=== PATIENT | male | born 1975 | race Caucasian/White ===

== ENCOUNTER 2021-06-05 23:00 | Emergency (ER) | payer BC, OTHER ==
[2021-06-05 23:11] VITALS: TEMP 97.9; BMI 25.8
[2021-06-06 01:00] LABS: CHLORIDE 105 mmol/L (98-107); SODIUM 139 mmol/L (136-145)
[2021-06-06 01:02] LABS: ALBUMIN 4.1 g/dl (3.4-5.0); ANION GAP 4 MMOL/L (8-16); BLOOD UREA NITROGEN 16.9 mg/dL (7-18); CALCIUM 9.1 mg/dL (8.5-10.1); CO2 30 mmol/L (21-32)
[2021-06-06 01:03] LABS: GLUCOSE,RANDOM 83 mg/dL (74-106)
[2021-06-06 01:38] VITALS: BP 125/83; PULSE 69
[2021-06-06] MEDS ORDERED: clonazePAM 2 MG TABLET PO ONE (01:38)
[2021-06-06] MEDS ORDERED: clonazePAM 0.5 MG TABLET PO ONE (01:38)
[2021-06-06 01:40] LABS: BASO % 1.1 % (0-2.0); EOS % 3.4 % (0-4.5); HEMOGLOBIN 12.7 GM/dL (11.7-16.9); LYMPH % 32.8 % (8-40); MCH 27.8 pg (25.7-33.7); MCHC 34.2 g/dl (32.0-35.9); MEAN CELL VOLUME 81.4 fl (80-96); MEAN PLT VOLUME 7.1 fl (7.5-11.1); MONO % 9.9 % (3.8-10.2); NEUT % 52.8 % (42.8-82.8); PLATELET COUNT 417 10^3/uL (134-434); RBC 4.54 M/mm3 (4.00-5.60); RDW 15.1 % (11.9-15.9); WHITE BLOOD COUNT 7.5 K/mm3 (4.0-10.0)
[2021-06-06] MEDS ORDERED: clonazePAM 0.5 MG TABLET ONE (01:46)
[2021-06-06 02:04] LABS: ALK PHOS 131 U/L (45-117); BILIRUBIN,TOTAL 0.2 mg/dL (0.2-1); CREATININE 0.9 mg/dL (0.55-1.3); SGOT/AST 24 U/L (15-37); SGPT/ALT 26 U/L (13-61); TOT PROT 7.5 g/dl (6.4-8.2)
== END 2021-06-06 01:16 | disposition home or self-care (01) ==
LOC: JER 23:00
DX: F13.90 Sedative, hypnotic, or anxiolytic use, unspecified, uncomplicated (principal)
CPT/HCPCS: 36415; 80053; 82550; 84484; 85025; 93005; 93010; 99284-25; C9803; U0003; U0005